=== PATIENT | female | born 1965 | race Caucasian/White ===

== ENCOUNTER 2017-02-09 15:55 | Emergency (ER) | payer MEDICAID ==
[~2017-02-09] VITALS: Ht 160 cm; Wt 70.3 kg
[2017-02-09 16:06] VITALS: BP_SYST 123
--- NOTE | 2017-02-09 16:06 | NUR ---
Patient to ER bed 08 to gown for evaluation. Side rails up. Report given to Geoff
--- NOTE | 2017-02-09 16:15 | NUR ---
ER Dr. Pelletier at bedside examining patient.
--- NOTE | 2017-02-09 16:16 | NUR ---
Pt AAOx4, able to verbalize needs. Pt c/o 3/10 pain on right lower lip. Right lip noted with bruise and tenderness. Pt also c/o chronic swelling on left foot "from accident a year ago." Pt states she has medication for swelling "but swelling hasn't improved." Pedal pulses present bilaterally. No other complaints or injuries per pt or noted.
--- NOTE | 2017-02-09 16:49 | NUR ---
Pt requested for blood sugar check. BS 114, Dr. Pelletier aware of results, no new orders.
--- NOTE | 2017-02-09 16:58 | NUR ---
Patient given written and verbal discharge instructions and verbalizes understanding. ER MD discussed with patient the results and treatment provided. Patient in stable condition. ID arm band removed. IV catheter removed intact and dressing applied, no active bleeding. Rx of motroin, debrox otic drops, and augmentin given. Patient educated on pain management and to follow up with PMD. Pain Scale 0/10. Opportunity for questions provided and answered.
[2017-02-09 16:59] VITALS: BP_SYST 123
== END 2017-02-09 16:58 | disposition home or self-care (01) ==
LOC: SED 15:55
DX: S00.522A Blister (nonthermal) of oral cavity, initial encounter (principal); H61.21 Impacted cerumen, right ear; G89.29 Other chronic pain; M79.672 Pain in left foot; X58.XXXA Exposure to other specified factors, initial encounter; Y93.89 Activity, other specified; Y92.89 Other specified places as the place of occurrence of the external cause; Y99.8 Other external cause status
CPT/HCPCS: 82962; 99283